=== PATIENT | male | born 1965 | race Caucasian/White ===

== ENCOUNTER 2018-02-09 01:46 | Emergency (ER) | payer BC, OTHER ==
[~2018-02-09] VITALS: Ht 172.7 cm; Wt 108.9 kg
[~2018-02-09 01:46] MED LIST: AMOXICILLIN 50500 M1 PO; PREDNISONE 20 M20 M1 PO; PROAIR HFA8.5 GM PO
[2018-02-09] MEDS ORDERED: LISINOPRIL10 MG PO (01:58)
[2018-02-09] MEDS ORDERED: ALLEGRA ALLERG180 MG PO (01:58)
[2018-02-09 02:23] LABS: ABSOLUTE BASOPHILS 0.1 thou/uL (0.0-0.2); ABSOLUTE EOSINOPHILS 0.3 thou/uL (0.0-0.7); ABSOLUTE LYMPHOCYTES 3.3 thou/uL (0.8-5.3); ABSOLUTE MONOCYTES 1.4 thou/uL (0.0-1.2); EOSINOPHILS 2.6 %; HEMATOCRIT 44.7 % (42.0-52.0); HEMOGLOBIN 15.2 gm/dL (14.0-18.0); LYMPHOCYTES 29.6 %; MCH 31.5 pg (26.0-34.0); MCHC 33.9 g/dL (28.0-37.0); MCV 92.9 fL (80.0-100.0); MONOCYTES 12.5 %; MPV 7.7 fl. (7.2-11.1); NUCLEATED RBCS 0 /100WBC; PLATELET COUNT* 290 thou/uL (150-400); POLYS 54.3 %; RBC 4.81 mil/uL (4.50-6.00); RDW-CV 14.4 % (10.5-14.5); WBC 11.1 thou/uL (4.0-11.0)
[2018-02-09 02:32] LABS: ANION GAP 5 mmol/L (7-16); BUN 27 mg/dL (7-18); CALCIUM 8.6 mg/dL (8.5-10.1); CHLORIDE 102 mmol/L (98-107); CO2 29 mmol/L (21-32); CREATININE 1.2 mg/dL (0.6-1.3); GLUCOSE 174 mg/dL (70-99); POTASSIUM 3.7 mmol/L (3.5-5.1); SODIUM 136 mmol/L (136-145)
[2018-02-09 02:35] LABS: INR 1.1; PROTIME 10.3 Seconds (9.20-11.50)
[2018-02-09 02:43] LABS: ALBUMIN 3.5 g/dL (3.4-5.0); ALKALINE PHOSPHATASE 57 U/L (46-116); LIPASE 98 U/L (73-393); NT-PRO BRAIN NAT PEPTIDE 16 pg/mL (<300); SGOT 30 U/L (15-37); SGPT 46 U/L (30-65); TOTAL BILIRUBIN 0.2 mg/dL (<0.1-1.0); TOTAL PROTEIN 7.1 g/dL (6.4-8.2); TROPONIN-I LEVEL <0.06 ng/mL (<0.06)
[2018-02-09 03:15] VITALS: BP 137/71
--- NOTE | 2018-02-09 11:08 | EKG ---
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: : [id number] Requested By: Maryse Gillis Order Number: [id number] MD: Song Jin Measurements Intervals [place] Rate: 111 P: 71 [place]: 162 QRS: -12 QRSD: 107 T: 49 QT: 349 QTc: 474 Interpretive Statements Sinus tachycardia RSR' in V1 or V2, right VCD or RVH Baseline wander in lead(s) V1,V2 Compared to ECG 10/04/2014 06:07:20 Right ventricular hypertrophy now present RSR' in V1 or V2 now present Sinus rhythm no longer present Electronically Signed On 02-09-2018 11:08:01 CDT by Song Jin [email or web address] <ELECTRONICALLY SIGNED> By: Song Jin MD, FACC 02/09/18 [id number] Song Jin MD, FAC /EPI
== END 2018-02-09 03:15 | disposition home or self-care (01) ==
LOC: M.ERS 01:46
PROVIDERS: Emergency Medicine
DX: R00.0 Tachycardia, unspecified (principal); F41.9 Anxiety disorder, unspecified; F17.210 Nicotine dependence, cigarettes, uncomplicated